=== PATIENT | female | born 1955 | race Caucasian/White ===

== ENCOUNTER 2018-01-30 08:52 | Emergency (ER) | payer BC, SELFPAY ==
[2018-01-30 08:59] VITALS: BP 129/56; PULSE 71; RESP 18; TEMP 36.9; O2SAT 100; BMI 19.6
[2018-01-30 09:38] LABS: Basophils % 0.3 % (0.1-2.0); Eosinophils % 0.3 % (0.1-12.0); Hematocrit 48.7 % (37.0-47.0); Lymphocytes # 1.3 K/mm3 (0.7-4.5); Lymphocytes % 18.3 K/mm3 (10-50); Mean Corpuscular HGB Conc 32.8 g/dL (31.8-35.4); Mean Corpuscular Hemoglobin 30.1 pg (27.0-31.2); Mean Corpuscular Volume 91.7 fl (81-99); Mean Platelet Volume 7.9 fl (7.4-10.4); Monocytes # 0.2 K/mm3 (0.1-1.0); Monocytes % 2.4 % (1.7-9.3); Neutrophils # 5.4 K/mm3 (1.8-7.8); Neutrophils % 78.8 % (37.0-80.0); Platelet Count 265 K/mm3 (142-424); Red Cell Distribution Width 12.7 % (11.5-17.5); White Blood Count 6.8 K/mm3 (4.8-10.8)
--- NOTE | 2018-01-30 09:45 | PC.NURSE ---
PT REFUSED TRAY OFFERED. AWARE.
[2018-01-30 09:52] LABS: Alanine Aminotransferase 27 U/L (12-78); Albumin Level 4.7 gm/dL (3.4-5.0); Albumin/Globulin Ratio 1.2 (1.1-1.8); Alkaline Phosphatase 113 U/L (46-116); Anion Gap 6.8 mEq/L (5-15); Aspartate Amino Transferase 15 U/L (15-37); Bilirubin,Total 0.4 mg/dL (0.2-1.0); Blood Urea Nitrogen 18 mg/dL (7-18); Calcium 9.5 mg/dL (8.5-10.1); Carbon Dioxide 29 mmol/L (21.0-32.0); Chloride 98 mmol/L (98-107); Creatinine Clearance Estimated 48 mL/min (0-300); Creatinine,Serum 0.83 mg/dL (0.55-1.02); Estimated Glomerular Filt Rate 69 ml/min (>60); GFR (African American) 84 ML/MIN (>60); Globulin 3.8 gm/dl (1.3-3.2); Glucose 145 mg/dL (74-106); Potassium 3.8 mmoL/L (3.5-5.1); Sodium 130 mmol/L (136-145); Total Protein,Serum 8.5 gm/dL (6.4-8.2)
[2018-01-30 10:14] LABS: D-Dimer < 100 (0-400)
--- NOTE | 2018-01-30 10:16 | XR_ITS ---
XR chest portable HISTORY: ITS.REASON: chest pain ORDERING PHYSICIAN: David Noonan MD PATIENT AGE: 62 years COMPARISON: None available FINDINGS: The cardiomediastinal silhouette and pulmonary vascularity are within normal limits. The lungs are clear without infiltrates, suspicious nodules, or pleural effusions. There is some nodularity left lung base nonspecific and may be due to nipple shadow. Follow-up PA and lateral chest with nipple markers may confirm. No acute bony abnormalities. Subcortical cystic changes present in the right humeral head IMPRESSION: No acute finding, see above for detail
[2018-01-30 10:31] LABS: Creatine Kinase 63 U/L (26-192); Troponin I < 0.02 ng/ml (0.00-0.06)
[2018-01-30 10:32] LABS: CKMB Relative Index 0.8 U/L (0-4.0); Creatine Kinase MB < 0.5 mg/ml (0.0-3.6)
--- NOTE | 2018-01-30 10:42 | CT_ITS ---
CT abdomen pelvis wo con CLINICAL INDICATION: ITS.REASON: epigastric pain, nausea, vomiting ORDERING PHYSICIAN: David Noonan MD PATIENT AGE: 62 years COMPARISON: None TECHNIQUE: Axial images obtained with sagittal and coronal reformats. PROCEDURE: Oral Contrast: None IV Contrast: None . FINDINGS: Atelectatic or fibrotic changes are present in the lung bases. The liver, spleen, adrenal glands, and gallbladder have an unremarkable unenhanced CT appearance. No obvious pancreatic mass. The pancreas is somewhat poorly demonstrated due to overlying unopacified bowel with mild motion artifact region of the pancreatic tail somewhat full but may be related to the overlying unopacified bowel. No renal calculi or hydronephrosis. Present mild amount retained colonic feces. No intestinal obstruction or free air. Unremarkable appendix. No evidence of diverticulitis. No pelvic mass or focal inflammatory change of the pelvis. Urinary bladder somewhat distended. No bladder stones. No acute bony anomalies. There is a well-circumscribed 2 x 1 cm lucent lesion within the right femoral neck. This has a benign appearance. A similar but smaller lesion is present left femoral neck at 8 mm. IMPRESSION: 1. No acute intra-abdominal or pelvic findings. 2. Constipation. 3. Bilateral benign-appearing lucent lesions of the femoral necks
[2018-01-30 10:52] LABS: Amylase 40 U/L (25-125); Lipase 164 u/L (73-393)
--- NOTE | 2018-01-30 11:10 | PC.NURSE ---
PT REFUSED IV DYE STATING SHE HAS HAD A REACTION IN THE PAST. NOTIFIED
--- NOTE | 2018-01-30 11:53 | HMH.EDABDPAI ---
ED Disposition Clinical Impression: Abdominal pain Qualifiers: Abdominal location: generalized Qualified Code(s): R10.84 - Generalized abdominal pain Disposition: Home, Self-Care Condition on Discharge: Good Instructions: DI for Acute Abdomen Additional Instructions: Follow-up with Dr. Lefty Carias, at your earliest convenience. Continue the medications prescribed as directed, making sure that he take the pills/inspection antibiotics ONLY after eating a meal. Please follow up with Dr Askew (your PCP) regarding your CT scan abnormalities (femoral heads lucencies). Prescriptions: Ondansetron [Zofran 4mg ODT] 4 mg PO QIDP PRN #20 tab.rapdis PRN Reason: Nausea Referrals: Lefty Carias [Referring] - Time of Disposition: 11:53 - Critical Care Critical Care Time: No Attestation: On 01/30/18, the high probability of a clinically significant, sudden or life threatening deterioration of the following system(s) required my full and direct attention, intervention and personal management. The time I documented below is in addition to time spent performing reported procedures but includes the following listed in this critical care notation. Medical Decision Making - Medical Records Medical records reviewed: Yes: I reviewed the patient's medical records. Vital Signs: 01/30/18 08:59 01/30/18 12:15 Temperature 98.4 F 98.4 F Temperature Source Temporal Artery Scan Pulse Rate 71 Pulse Rate [Right Radial] 71 Respiratory Rate 18 18 Blood Pressure 129/56 Blood Pressure [Right Arm] 129/56 Blood Pressure Mean [Right Arm] 80 02 Sat by Pulse Oximetry 100 Oxygen Delivery Method Room Air - Lab Data Lab results reviewed: Yes: I reviewed the patient's lab results. Lab Results 01/30/18 09:13: Total Creatine Kinase 63, CK-MB (CK-2) < 0.5, CK-MB (CK-2) Rel Index 0.8, Troponin I < 0.02 01/30/18 09:15: WBC 6.8, RBC 5.30, Hgb 16.0, Hct 48.7 H, MCV 91.7, MCH 30.1, MCHC 32.8, RDW 12.7, Plt Count 265, MPV 7.9, Neut % (Auto) 78.8, Lymph % (Auto) 18.3, [place] % (Auto) 2.4, Eos % (Auto) 0.3, Baso % (Auto) 0.3, Neut # (Auto) 5.4, Lymph # (Auto) 1.3, [place] # (Auto) 0.2, Eos # (Auto) 0.0, Baso # (Auto) 0.0 01/30/18 09:15: D-Dimer < 100 01/30/18 09:15: Sodium 130 L, Potassium 3.8, Chloride 98, Carbon Dioxide 29, Anion Gap 6.8, BUN 18, Creatinine 0.83, Estimated Creat Clear 48, Estimated GFR 69, Est GFR ( Amer) 84, Glucose 145 H, Calcium 9.5, Total Bilirubin 0.4, AST 15, ALT 27, Alkaline Phosphatase 113, Total Protein 8.5 H, Albumin 4.7, Globulin 3.8 H, Albumin/Globulin Ratio 1.2 01/30/18 09:15: B-Natriuretic Peptide 16 01/30/18 09:15: Amylase 40, Lipase 164 Result diagrams: 01/30/18 09:15 01/30/18 09:15 Orders (Tests/Meds): ED MEDICATIONS Discontinued Medications Generic Name Dose Route Start Last Admin Trade Name Freq PRN Reason Stop Dose Admin Aspirin 324 mg 01/30/18 09:15 01/30/18 09:27 Aspirin 81mg Chewable Tablet PO 01/30/18 09:16 Not Given ONCE ONE Ketorolac Tromethamine 30 mg 01/30/18 10:53 01/30/18 10:55 Toradol 30mg/Ml Vial IV 01/30/18 10:54 30 mg ONCE ONE Administration Lorazepam 0.5 mg 01/30/18 12:06 01/30/18 12:09 Ativan 2mg/Ml Vial IV 01/30/18 12:07 0.5 mg ONCE ONE Administration Ondansetron HCl 4 mg 01/30/18 09:19 01/30/18 09:24 Zofran 4mg/2ml Vial IV 01/30/18 09:20 4 mg ONCE ONE Administration Sodium Chloride 2 ml 01/30/18 12:06 Saline Flush 10ml Syringe IV 03/01/18 12:05 NEEDED PRN to Dilute Lorazepam inj - CT Data CT Scan: Abdomen, Pelvis (Without IV contrast, as patient refused administration IV contrast stating that she is allergic to this agent.) Time Received: 11:[address] Reviewed: Yes: I have reviewed the patient's CT results Preliminary Findings: Normal/NAD - Osorio Inquiry Pt receiving controlled substance: No - Reevaluation(s) Time: 11:45 Reevaluation #1: On reevaluation patient appears medically stable
--- NOTE | 2018-01-30 11:56 | ED_ITS ---
ED Disposition Clinical Impression: Abdominal pain Qualifiers: Abdominal location: generalized Qualified Code(s): R10.84 - Generalized abdominal pain Disposition: Home, Self-Care Condition on Discharge: Good Instructions: DI for Acute Abdomen Additional Instructions: Follow-up with Dr. Lefty Carias, at your earliest convenience. Continue the medications prescribed as directed, making sure that he take the pills/inspection antibiotics ONLY after eating a meal. Please follow up with Dr Askew (your PCP) regarding your CT scan abnormalities ( femoral heads lucencies). Prescriptions: Ondansetron [Zofran 4mg ODT] 4 mg PO QIDP PRN #20 tab.rapdis PRN Reason: Nausea Referrals: Lefty Carias [Referring] - Time of Disposition: 11:53 - Critical Care Critical Care Time: No Attestation: On 01/30/18, the high probability of a clinically significant, sudden or life threatening deterioration of the following system(s) required my full and direct attention, intervention and personal management. The time I documented below is in addition to time spent performing reported procedures but includes the following listed in this critical care notation. Medical Decision Making - Medical Records Medical records reviewed: Yes: I reviewed the patient's medical records. Vital Signs: 01/30/18 08:59 01/30/18 12:15 Temperature 98.4 F 98.4 F Temperature Source Temporal Artery Scan Pulse Rate 71 Pulse Rate [Right Radial] 71 Respiratory Rate 18 18 Blood Pressure 129/56 Blood Pressure [Right Arm] 129/56 Blood Pressure Mean [Right Arm] 80 02 Sat by Pulse Oximetry 100 Oxygen Delivery Method Room Air - Lab Data Lab results reviewed: Yes: I reviewed the patient's lab results. Lab Results 01/30/18 09:13: Total Creatine Kinase 63, CK-MB (CK-2) < 0.5, CK-MB (CK-2) Rel Index 0.8, Troponin I < 0.02 01/30/18 09:15: WBC 6.8, RBC 5.30, Hgb 16.0, Hct 48.7 H, MCV 91.7, MCH 30.1, MCHC 32.8, RDW 12.7, Plt Count 265, MPV 7.9, Neut % (Auto) 78.8, Lymph % (Auto) 18.3, [place] % (Auto) 2.4, Eos % (Auto) 0.3, Baso % (Auto) 0.3, Neut # (Auto) 5.4 , Lymph # (Auto) 1.3, [place] # (Auto) 0.2, Eos # (Auto) 0.0, Baso # (Auto) 0.0 01/30/18 09:15: D-Dimer < 100 01/30/18 09:15: Sodium 130 L, Potassium 3.8, Chloride 98, Carbon Dioxide 29, Anion Gap 6.8, BUN 18, Creatinine 0.83, Estimated Creat Clear 48, Estimated GFR 69, Est GFR ( Amer) 84, Glucose 145 H, Calcium 9.5, Total Bilirubin 0.4, AST 15, ALT 27, Alkaline Phosphatase 113, Total Protein 8.5 H, Albumin 4.7, Globulin 3.8 H, Albumin/Globulin Ratio 1.2 01/30/18 09:15: B-Natriuretic Peptide 16 01/30/18 09:15: Amylase 40, Lipase 164 Result diagrams: 01/30/18 09:15 01/30/18 09:15 Orders (Tests/Meds): ED MEDICATIONS Discontinued Medications Generic Name Dose Route Start Last Admin Trade Name Paulq PRN Reason Stop Dose Admin Aspirin 324 mg 01/30/18 09:15 01/30/18 09:27 Aspirin 81mg Chewable Tablet PO 01/30/18 09:16 Not Given ONCE ONE Ketorolac Tromethamine 30 mg 01/30/18 10:53 01/30/18 10:55 Toradol 30mg/Ml Vial IV 01/30/18 10:54 30 mg ONCE ONE Administration Lorazepam 0.5 mg 01/30/18 12:06 01/30/18 12:09 Ativan 2mg/Ml Vial IV 01/30/18 12:07 0.5 mg ONCE ONE Administration Ondansetron HCl 4 mg 01/30/18 09:19 01/30/18 09:24 Zofran 4mg/2ml Vial IV 01/30/18 09:20 4 mg
--- NOTE | 2018-01-30 12:14 | PC.NURSE ---
PT AMBULATED OUT OF ED WITHOUT ASSIST. REFUSED WHEELCHAIR.
[2018-01-30 12:15] VITALS: BP 129/56; PULSE 71; RESP 18; TEMP 36.9; O2SAT 100
== END 2018-01-30 12:17 | disposition home or self-care (01) ==
PROVIDERS: Emergency Provider Emergency Medicine; Family Provider Family Medicine
DX: R10.84 Generalized abdominal pain (principal); R11.2 Nausea with vomiting, unspecified
CPT/HCPCS: 71045; 74176; 80053; 82150; 82550; 82553; 83690; 83880; 84484; 85025; 85378; 93005; 96374; 96375; 99283; J2405

== ENCOUNTER → 2018-03-09 08:58 | Outpatient (CLI) | payer BC, SELFPAY ==
--- NOTE | 2018-03-09 09:05 | XR_ITS ---
XR DEXA axial skeleton HISTORY: ITS.REASON: POST MENOPAUSAL ORDERING PHYSICIAN: Blake Askew MD PATIENT AGE: 62 years FINDINGS: The BMD measured at the AP Spine L1-L4 is 0.810 g/cm squared with a T score of -3.1. This is considered Osteoporotic according to the World Health Organization criteria. Fracture risk is high. Treatment is advised. The mean density of the hips as a T score of -1.5 IMPRESSION: Osteoporosis with high fracture risk. Recommend follow-up exam February 2019 based on these results
== END ==
PROVIDERS: Family Provider Family Medicine; PCP Family Medicine; Visit Provider Family Medicine
DX: Z78.0 Asymptomatic menopausal state (principal); N95.1 Menopausal and female climacteric states
CPT/HCPCS: 77080

== ENCOUNTER → 2018-09-25 11:08 | Outpatient (POV) | payer BC, SELFPAY | PROVIDERS: Visit Provider Nurse Practitioner Acute Care | DX: Z00.00 Encounter for general adult medical examination without abnormal findings (principal) ==

== ENCOUNTER → 2021-09-28 09:06 | Outpatient (CLI) | payer MEDICARE, SELFPAY ==
--- NOTE | 2021-09-28 09:09 | XR_ITS ---
PROCEDURE: XR DEXA AXIAL SKELETON CLINICAL HISTORY: POST-MENOPAUSAL SYNDROME, AGE RELATED OSTEOPOROSIS COMPARISON: CR,DX DEXAAX XR DEXA axial skeleton from 03/09/2018 FINDINGS: The right hip BMD is 0.756 with a T-score of -1.5. The left hip BMD is 0.746 with a T-score of -1.6. The lumbar spine BMD is 0.726 with a T-score of -2.9. Previously the lowest density was in the spine with T-score of -3.1 IMPRESSION: This patient is considered osteoporotic according to the World Health Organization criteria. Fracture risk is high. Treatment is advised. Based on these results a follow-up exam is recommended in 1 year. Dictated by: Ludwin Pool MD 09/28/2021 15:40 Ludwin Pool MD in [place] 09/28/2021 15:40
== END ==
PROVIDERS: PCP Family Medicine; Visit Provider Family Medicine
DX: M81.0 Age-related osteoporosis without current pathological fracture (principal); N95.1 Menopausal and female climacteric states
CPT/HCPCS: 77080

== ENCOUNTER 2025-03-27 20:52 | Emergency (ER) | payer MEDICARE, SELFPAY ==
[2025-03-27 21:02] VITALS: BP 143/80; PULSE 72; RESP 18; TEMP 36.7; O2SAT 98; BMI 18.3
--- NOTE | 2025-03-27 21:02 | XR_ITS ---
PROCEDURE INFORMATION: Exam: XR Left Wrist Exam date and time: 03/27/2025 9:08 PM Age: 69 years old Clinical indication: Pain; Wrist; Left; Additional info: L wrist injury TECHNIQUE: Imaging protocol: Radiologic exam of the left wrist. Views: 3 or more views. COMPARISON: CR XR WRIST LT MIN 3V 03/27/2025 9:08 PM FINDINGS: Bones/joints: Nondisplaced fracture in the radial styloid. Joint space narrowing and marginal osteophytosis at the base of the thumb. Small osseous fragment posterior to the proximal carpal row, seen only on the lateral view. Soft tissues: Normal. IMPRESSION: 1. Nondisplaced fracture in the radial styloid. 2. Small osseous fragment posterior to the proximal carpal row, seen only on the lateral view. Suspicious for triquetral fracture. 3. Osteoarthritis at the base of the thumb.
--- NOTE | 2025-03-27 21:02 | XR_ITS ---
PROCEDURE INFORMATION: Exam: XR Left Hand Exam date and time: 03/27/2025 9:08 PM Age: 69 years old Clinical indication: Pain; Hand; Left; Additional info: L wrist injury TECHNIQUE: Imaging protocol: Radiologic exam of the left hand. Views: 3 or more views. COMPARISON: CR XR FOREARM LT 2V 03/27/2025 9:08 PM FINDINGS: Tubes, catheters and devices: Jewelry artifact noted. Bones/joints: Please refer to the wrist examination report for description of the distal radius and carpal fractures. Joint space narrowing and marginal osteophytosis of the base of the thumb. No acute fracture. No dislocation. Soft tissues: Normal. IMPRESSION: Joint space narrowing and marginal osteophytosis of the base of the thumb. Consistent with osteoarthritis.
--- NOTE | 2025-03-27 21:02 | XR_ITS ---
PROCEDURE INFORMATION: Exam: XR Left Forearm Exam date and time: 03/27/2025 9:08 PM Age: 69 years old Clinical indication: Pain; Lower or forearm; Left; Additional info: L wrist injury TECHNIQUE: Imaging protocol: Radiologic exam of the left forearm. Views: 2 views. COMPARISON: CR XR FOREARM LT 2V 03/27/2025 9:08 PM FINDINGS: Bones/joints: Nondisplaced fracture in the distal radius. Soft tissues: Moderate swelling in the distal soft tissues. IMPRESSION: Nondisplaced fracture in the distal radius.
--- NOTE | 2025-03-27 21:04 | ED_ITS ---
Discharge Plan Disposition Patient Disposition: Home, Self-Care Prescriptions Prescriptions: New oxycodone 5 mg tablet 5 mg PO Q6H PRN (Reason: pain) Qty: 12 0RF No Action alprazolam [Xanax] 0.5 mg tablet 0.5 mg PO BID bupropion HCl 200 mg tablet extended release 12 hr 200 mg PO DAILY 30 Days Qty: 60 alendronate 70 mg tablet 70 mg PO WEEKLY 28 Days Qty: 4 0RF Referrals Follow up/Referrals: Sheri Cole MD [Primary Care Provider] - See instructions Angelo Felton DO [Staff Physician] - See instructions Activity Restrictions/Add. Instructions Additional Instructions/Restrictions: Take Tylenol and ibuprofen as needed for pain. Take oxycodone as needed for breakthrough pain. Do not get splint wet. Call Dr. Felton's office to schedule an appointment tomorrow. Please return to the ER with any new, concerning, worsening symptoms. Clinical Impressions Clinical Impression: Distal radial fracture Qualifiers: Encounter type: initial encounter Fracture type: closed Fracture morphology: other fracture Laterality: left Qualified Code(s): S52.592A - Other fractures of lower end of left radius, initial encounter for closed fracture Print Language Print Language: Citizen Of [place] Discharge ED Provider: Barrett Chang General Adult HPI General Chief complaint: Fall Stated complaint: AO 4-30 got thrown off horse hurt left arm Time Seen by Provider: 03/27/25 21:02 Mode of Arrival: Ambulatory Source of Information: Patient Limitations: No Limitations History of Present Illness HPI narrative: This is a 69-year-old female who presents with a left wrist injury after falling off her horse. Denies hitting her head. Denies loss of conscious. Denies blood thinner use. States that she landed on her left side. Denies any other injuries other than her left wrist. Related Data Home Medications ?Medication ?Instructions ?Recorded ?Confirmed alprazolam 0.5 mg tablet (Xanax) 0.5 mg PO BID Anxiety 04/21/18 09/10/20 bupropion HCl 200 mg tablet,12 hr 200 mg PO DAILY mood 30 days ##60 04/21/18 09/10/20 sustained-release Previous Rx's ?Medication ?Instructions ?Recorded alendronate 70 mg tablet 70 mg PO WEEKLY Osteoarthritis 28 10/05/23 days #4 tabs oxycodone 5 mg tablet 5 mg PO Q6H PRN pain #12 tabs 03/27/25 Allergies Allergy/AdvReac Type Severity Reaction Status Date / Time No Known Allergies Allergy Verified 09/08/21 13:33 [facility] Disclaimer: The information contained in this section may have been updated after the patient was seen, as this information can be updated by other users. Social History Smoking Status: Never smoker alcohol intake: never current occupational status: other Travel in the last 8 weeks?: None caffeine: Yes Other Medical History Have you received the Flu Vaccine for this season: No ROS Obtained: Yes All systems reviewed & no additional complaints except as documented Physical Exam General General appearance: alert and in no apparent distress Head Head exam: atraumatic, normocephalic and normal inspection Eye Eye exam: Present normal appearance, PERRL and EOMI ENT ENT exam: Present normal exam and normal oropharynx Neck Neck exam: Present normal inspection and full ROM; Absent tenderness Chest Chest inspection: Present normal inspection and symmetric chest wall rise; Absent tenderness Respiratory Respiratory exam: Present normal lung sounds bilaterally; Absent respiratory distress Cardiovascular Cardiovascular exam: Present regular rate and normal rhythm Abdominal Exam Abdominal exam: Present soft; Absent distention or tenderness Extremities Exam Extremities exam: Present other (LUE: Deformity and tenderness at the wrist. Neurovascularly intact to the median/radial/ulnar nerve distributions.) Back Exam Back exam: Present normal inspection; Absent tenderness Neurological Exam Neurological exam: Present alert and oriented X3 Psychiatric Psychiatric exam: Present normal affect and normal mood Skin Skin exam: Present warm and dry Medical Decision Making Medical Records Medical records reviewed: Yes I reviewed the patient's medical records. Screening: Per USPSTF and CDC recommendations, given the prevalence of disease in our region, it is our hospital?s policy to screen for HIV and viral Hepatitis for all patients aged 18 and over and those with ongoing risk factors. Osorio Inquiry Pt receiving controlled substance: No Vital Signs: 03/27/25 21:02 03/27/25 22:08 Temperature 98.1 F 98.1 F Temperature Source Oral Pulse Rate 64 Pulse Rate [Left Radial] 72 Respiratory Rate 18 14 Blood Pressure 123/70 Blood Pressure [Right Arm] 143/80 H Blood Pressure Mean [Right Arm] 101 Blood Pressure Position Sitting Blood Pressure Position [Right Arm] Sitting 02 Sat by Pulse Oximetry 98 Oxygen Delivery Method Room Air Room Air Orders (Tests/Meds): ED MEDICATIONS Discontinued Medications Generic Name Dose Route Start Last Admin Trade Name Valdemar PRN Reason Stop Dose Admin Hydromorphone HCl 0.5 mg 03/27/25 21:02 03/27/25 21:24 Hydromorphone 2mg/Ml Syringe IV 03/27/25 21:03 0.5 mg ONCE ONE Administration Lidocaine/Epinephrine 20 ml 03/27/25 21:02 Lidocaine 1% W/Epi 1:100,000 20ml Vial IJ 03/27/25 21:03 ONCE ONE Oxycodone HCl 5 mg 03/27/25 21:54 03/27/25 22:05 Oxycodone 5mg Immediate Release Tablet PO 03/27/25 21:55 5 mg ONCE ONE Administration ORDERS Category Date Time Status Forearm XR left 2 views [XR forearm LT 2V] Stat Exams 03/27/25 21:02 Completed Hand XR left minimum 3 views [XR hand LT min 3V] Stat Exams 03/27/25 21:02 Completed Wrist XR left minimum 3 views [XR wrist LT min 3V] Stat Exams 03/27/25 21:02 Completed Medical Decision Narrative: In summary, this 69-year-old female presents to the emergency department today with left wrist injury after falling off her horse. On initial evaluation patient is afebrile, hemodynamically stable, nontoxic-appearing. Had a deformity to the left wrist but no other areas of focal tenderness or trauma on exam. Was very well-appearing. No head injury. Differential diagnosis includes but is not limited to fracture, dislocation, soft tissue injury, neurovascular injury. Based on these concerns, I ordered x-ray imaging of the left hand, wrist, forearm. Considered CT head and CT imaging with IV contrast to evaluate for other traumatic injuries, however patient had no other areas of focal tenderness or trauma. Patient received Dilaudid for treatment. XR personally interpreted demonstrates minimally displaced distal radius fracture. Consulted orthopedic surgery who agreed with sugar-tong splint in place and Ortho follow-up. Patient was placed in a sugar-tong splint. On reassessment patient in no acute distress and appropriate for discharge with follow-up. Provided info to call orthopedic surgery office first thing in the [facility]. Prescribed a short course of oxycodone for breakthrough pain. Critical Care Critical Care Time Critical Care Time: No
[2025-03-27] MEDS: HYDROMORPHONE 2MG/ML SYRINGE 0.5 MG IV (21:24)
[2025-03-27] MEDS: OXYCODONE 5MG IMMEDIATE RELEASE TABLET 5 MG PO (22:05)
[2025-03-27 22:08] VITALS: BP 123/70; PULSE 64; RESP 14; TEMP 36.7; O2SAT 97
--- NOTE | 2025-03-28 09:15 | PC.NURSE ---
The pharmacist from [facility] called to verify oxycodone sent in. I spoke with he verbalizes that it is fine to be filled.
== END 2025-03-27 22:09 | disposition home or self-care (01) ==
PROVIDERS: Emergency Provider Student in an Organized Health Care Education/Training Program; PCP Family Medicine
DX: S52.512A Displaced fracture of left radial styloid process, initial encounter for closed fracture (principal); V80.010A Animal-rider injured by fall from or being thrown from horse in noncollision accident, initial encounter
CPT/HCPCS: 29125; 73090; 73110; 73130; 96374; 99284; J1171

== ENCOUNTER 2025-04-04 12:38 | Outpatient (CLI) | payer MEDICARE, SELFPAY ==
--- NOTE | 2025-04-04 12:42 | XR_ITS ---
FINAL REPORT CLINICAL HISTORY: lt wrist fx, bucked off of a horse about 1 week ago FINDINGS: LEFT WRIST Three views were obtained. Detail is limited by overlying cast material. There has been interval healing of an intra-articular distal radius fracture. There is no new osseous abnormality. IMPRESSION: Interval healing of intra articular distal radial fracture. Reviewed, Interpreted and Dictated by Shannon More MD Transcribed by JASBIR Palacios Authenticated and [facility]
--- NOTE | 2025-04-04 12:42 | XR_ITS ---
FINAL REPORT CLINICAL HISTORY: lt knee pain - bucked off of a horse about 1 week ago FINDINGS: LEFT KNEE 3 views of the left knee were obtained. There is no acute fracture or dislocation. There is mild degenerative joint disease. Soft tissues are unremarkable. IMPRESSION: No acute bony abnormality. Reviewed, Interpreted and Dictated by Shannon More MD Transcribed by JASBIR Palacios Authenticated and [facility]
== END 2025-04-04 23:59 | disposition home or self-care (01) ==
LOC: RAD 12:40
PROVIDERS: PCP Family Medicine; Visit Provider Physician Assistant
DX: S52.592A Other fractures of lower end of left radius, initial encounter for closed fracture (principal); V80.010A Animal-rider injured by fall from or being thrown from horse in noncollision accident, initial encounter; M25.562 Pain in left knee
CPT/HCPCS: 73110; 73562

== ENCOUNTER 2025-04-11 12:54 | Outpatient (CLI) | payer MEDICARE, SELFPAY ==
--- NOTE | 2025-04-11 12:57 | XR_ITS ---
FINAL REPORT CLINICAL HISTORY: left wrist fx f/u COMPARISON: 04/04/2025 FINDINGS: LEFT WRIST Three views demonstrate the previously noted minimally impacted and mildly comminuted fracture of the distal radial metaphysis, which appears to have intra-articular extension. A cast is present. The visualized joint spaces are normally aligned, stable since the prior exam. The soft tissues are unremarkable. IMPRESSION: Fracture of the distal radial metaphysis as described, with visualized joint spaces stable since the prior exam of 04/04/2025. Reviewed, Interpreted and Dictated by Juan Khan MD Transcribed by Raine Rajput Authenticated and [facility]
== END 2025-04-11 23:59 | disposition home or self-care (01) ==
LOC: RAD 12:55
PROVIDERS: PCP Family Medicine; Visit Provider Physician Assistant
DX: S52.572D Other intraarticular fracture of lower end of left radius, subsequent encounter for closed fracture with routine healing (principal); S52.592D Other fractures of lower end of left radius, subsequent encounter for closed fracture with routine healing
CPT/HCPCS: 73110

== ENCOUNTER 2025-05-02 13:19 | Outpatient (CLI) | payer MEDICARE, SELFPAY ==
--- NOTE | 2025-05-02 13:26 | XR_ITS ---
FINAL REPORT CLINICAL HISTORY: left wrist fx, fell off horse approximately 3 wks ago COMPARISON: 04/11/2025 FINDINGS: AP, oblique, and lateral views of the left wrist were obtained. Plaster cast has been removed. There has been interval healing of the previously seen distal radius fracture. Osteopenia is noted. There is degenerative joint disease. Soft tissue edema has improved. IMPRESSION: Interval healing distal radius fracture with improved soft tissue edema. Reviewed, Interpreted and Dictated by Shannon More MD Transcribed by Mitzy Potter Authenticated and [facility]
== END 2025-05-02 23:59 | disposition home or self-care (01) ==
LOC: RAD 13:20
PROVIDERS: PCP Family Medicine; Visit Provider Physician Assistant
DX: S52.502D Unspecified fracture of the lower end of left radius, subsequent encounter for closed fracture with routine healing (principal)
CPT/HCPCS: 73110

== ENCOUNTER 2025-05-23 13:06 | Outpatient (CLI) | payer MEDICARE, SELFPAY ==
--- NOTE | 2025-05-23 13:08 | XR_ITS ---
FINAL REPORT CLINICAL HISTORY: left wrist fx COMPARISON: 05/02/2025 FINDINGS: LEFT WRIST THREE VIEW FINDINGS: Three views show a transverse fracture of the radial metaphysis with mild dorsal angulation. The fracture lines appear slightly less distinct than on the previous exam indicating further healing. Osteopenia is noted. There are mild degenerative changes. IMPRESSION: Further partial healing distal radial fracture. Continued follow-up recommended. Reviewed, Interpreted and Dictated by Abran Law MD Transcribed by Mitzy Potter Authenticated and [facility]
== END 2025-05-23 23:59 | disposition home or self-care (01) ==
LOC: RAD 13:07
PROVIDERS: PCP Family Medicine; Visit Provider Physician Assistant
DX: S52.592P Other fractures of lower end of left radius, subsequent encounter for closed fracture with malunion
CPT/HCPCS: 73110

== ENCOUNTER 2025-06-05 12:55 | Outpatient (CLI) | payer MEDICARE, SELFPAY ==
--- NOTE | 2025-06-05 12:57 | MM_ITS ---
PROCEDURE INFORMATION: Exam: MG Bilateral Screening 3D Mammography Exam date and time: 06/05/2025 1:05 PM Age: 69 years old Clinical indication: Screening examination TECHNIQUE: Imaging protocol: Bilateral Screening tomosynthesis and 2D mammography including computer-aided detection (CAD) when performed. COMPARISON: No relevant prior studies available. FINDINGS: MAMMOGRAPHY: Breast composition: The breasts are extremely dense, which lowers the sensitivity of mammography. Mass: None. Architectural distortion: None. Calcifications: No suspicious calcifications. Asymmetric density: None. Skin thickening: None. Axillary adenopathy: None. IMPRESSION: No mammographic evidence of malignancy. Annual screening is recommended unless otherwise clinically indicated. ASSESSMENT: BI-RADS Category 1: Negative.
== END 2025-06-05 23:59 | disposition home or self-care (01) ==
LOC: RAD 12:55
PROVIDERS: PCP Family Medicine; Visit Provider Nurse Practitioner
DX: Z12.31 Encounter for screening mammogram for malignant neoplasm of breast (principal); R92.333 Mammographic heterogeneous density, bilateral breasts
CPT/HCPCS: 77063; 77067